=== PATIENT | female | born 1930 | race Caucasian/White ===

== ENCOUNTER 2020-10-04 16:18 | Inpatient (IN) | payer MEDICARE ==
[2020-10-04 17:01] LABS: #Monocytes 0.6 10x3/uL (0.0-1.1); #Neutrophils 10.5 10x3/uL (1.5-8.4); %Basophils 0.2 % (0.0-2.0); %Eosinophils 0.1 % (0.0-6.0); %Lymphocytes 6.4 % (18.0-47.0); %Monocytes 5.3 % (0.0-10.0); %Neutrophils 87.6 % (40.0-75.0); Hemoglobin 11.4 g/dL (12.0-15.5); Mean Corpuscular HGB CONC 32.1 g/dL (32.0-36.0); Mean Corpuscular Hemoglobin 28.6 pg (27.0-33.0); Mean Platelet Volume 10.2 fl (7.4-10.4); Platelet Count 226 10x3/uL (150-450); RBC Distribution Width 12.5 % (11.5-14.5); Red Blood Cell (RBC) Count 3.99 10x6/uL (3.90-5.03); White Blood Cell (WBC) Count 11.9 10x3/uL (3.5-10.5)
[2020-10-04 17:15] LABS: ALT (SGPT) 15 U/L (8-55); AST (SGOT) 22 U/L (5-34); Albumin 4.2 g/dL (3.4-4.8); Alkaline Phosphatase 85 U/L (40-110); Anion Gap 15 mmol/L (10-20); BUN (Urea Nitrogen) 9 mg/dL (9.8-20.1); Bilirubin, Total 0.7 mg/dL (0.2-1.2); Calc. Creatinine Clearance 0 mL/min (70-130); Calcium 9.3 mg/dL (7.8-10.44); Carbon Dioxide 23 mmol/L (23-31); Chloride 103 mmol/L (98-107); Globulin 2.2 g/dL (2.4-3.5); Glucose 138 mg/dL (83-110); Potassium 3.5 mmol/L (3.5-5.1); Protein, Total 6.4 g/dL (5.8-8.1); Sodium 137 mmol/L (136-145)
[2020-10-04] MEDS ORDERED: Aspirin Chewable 81 MG TAB ONE (17:22)
[2020-10-04] MEDS ORDERED: Nitroglycerin 2% Ointment 1 INCH/1 GM Packet ONE (17:22)
[2020-10-04] MEDS ORDERED: Piperacillin/Tazobactam 3.375 GM VIAL ONE (20:12)
[2020-10-04] MEDS ORDERED: ALPRAZolam 0.25 MG TAB PO SCH (23:30)
[2020-10-04 23:32] LABS: SARS-CoV-2 NAA Rapid Test Not Detected (NotDetected)
[2020-10-05] MEDS ORDERED: ALPRAZolam 0.5 MG TAB ONE (00:11)
[2020-10-05] MEDS ORDERED: Pantoprazole 40 MG VIAL IVP SCH (00:45)
[2020-10-05] MEDS ORDERED: Pantoprazole 40 MG VIAL ONE ×2 (00:47→12:25)
[2020-10-05] MEDS: Sodium Chloride 0.9% 1,000 ML IV SCH ×3 (00:54→21:16)
[2020-10-05] MEDS ORDERED: Piperacillin/Tazobactam 3.375 GM in Sodium Chloride 0.9% 100 ML IVPB SCH ×2 (01:00→20:00)
[2020-10-05] MEDS ORDERED: Piperacillin/Tazobactam 3.375 GM VIAL ONE ×2 (01:03→12:24)
[2020-10-05] MEDS ORDERED: Potassium Chloride 20 MEQ/100 ML PREMIX BAG ONE (01:31)
[2020-10-05] MEDS: Piperacillin/Tazobactam 3.375 GM in Sodium Chloride 0.9% 100 ML IVPB SCH ×3 (01:42→20:11)
[2020-10-05] MEDS ORDERED: Potassium Chloride 10 MEQ in Premix Bag 1 BAG IVPB SCH (02:00)
[2020-10-05] MEDS ORDERED: Potassium Bicarbonate/Cit Ac 20 MEQ TAB PO SCH (03:15)
[2020-10-05] MEDS ORDERED: Potassium Chloride 20 MEQ TAB ONE (03:23)
[2020-10-05 03:39] LABS: #Monocytes 0.8 10x3/uL (0.0-1.1); %Basophils 0.2 % (0.0-2.0); %Lymphocytes 6.1 % (18.0-47.0); %Monocytes 6.5 % (0.0-10.0); %Neutrophils 86.7 % (40.0-75.0); Mean Corpuscular HGB CONC 32.6 g/dL (32.0-36.0); Mean Corpuscular Hemoglobin 29.1 pg (27.0-33.0); Mean Corpuscular Volume 89.2 fl (81.6-98.3); Mean Platelet Volume 10.3 fl (7.4-10.4); Platelet Count 226 10x3/uL (150-450); RBC Distribution Width 12.8 % (11.5-14.5); Red Blood Cell (RBC) Count 3.44 10x6/uL (3.90-5.03); White Blood Cell (WBC) Count 12.7 10x3/uL (3.5-10.5)
[2020-10-05 03:44] LABS: Anion Gap 12 mmol/L (10-20); BUN (Urea Nitrogen) 9 mg/dL (9.8-20.1); Calc. Creatinine Clearance 54 mL/min (70-130); Calcium 8.7 mg/dL (7.8-10.44); Carbon Dioxide 23 mmol/L (23-31); Cardiac Risk 2.6 (Less than 4.5); Chloride 105 mmol/L (98-107); Cholesterol 168 mg/dl (< 200 Desired); Glucose 139 mg/dL (83-110); HDL Cholesterol 64 mg/dL (>60 Neg Risk); LDL Cholesterol, Calculated 96 mg/dL; Magnesium 1.8 mg/dL (1.6-2.6); Potassium 3.2 mmol/L (3.5-5.1); Sodium 137 mmol/L (136-145); Triglycerides 38 mg/dL (Less than 150)
[2020-10-05 03:51] LABS: Troponin I 0.021 ng/mL (< 0.028)
[2020-10-05] MEDS ORDERED: Potassium Chloride 20 MEQ TAB PO SCH ×2 (04:00→09:30)
[2020-10-05] MEDS ORDERED: Enoxaparin Sodium 30 MG/0.3 ML SYRINGE ONE (12:23)
[2020-10-05] MEDS ORDERED: Metoprolol Tartrate 25 MG TAB ONE (12:23)
[2020-10-05] MEDS ORDERED: Aspirin Chewable 81 MG TAB ONE (12:23)
[2020-10-05] MEDS ORDERED: Amlodipine 5 MG TAB ONE (12:24)
[2020-10-05] MEDS: Amlodipine 5 MG TAB PO SCH (12:40)
[2020-10-05] MEDS: Enoxaparin Sodium 30 MG/0.3 ML SYRINGE SC SCH (12:41)
[2020-10-05] MEDS: Aspirin 81 mg Enteric Coated Tablet PO SCH (12:41)
[2020-10-05] MEDS: Metoprolol Tartrate 25 MG TAB PO SCH ×2 (12:42→21:02)
[2020-10-05] MEDS: Pantoprazole 40 MG VIAL IVP SCH ×2 (12:42→21:04)
[2020-10-05] MEDS: ALPRAZolam 0.25 MG TAB PO SCH (21:02)
[2020-10-06 05:30] LABS: #Eosinphils 0.1 10x3/uL (0.0-0.5); #Monocytes 0.6 10x3/uL (0.0-1.1); #Neutrophils 7.6 10x3/uL (1.5-8.4); %Basophils 0.2 % (0.0-2.0); %Eosinophils 1.1 % (0.0-6.0); %Lymphocytes 10.3 % (18.0-47.0); %Monocytes 6.4 % (0.0-10.0); %Neutrophils 81.7 % (40.0-75.0); Hemoglobin 9.1 g/dL (12.0-15.5); Mean Corpuscular HGB CONC 31.7 g/dL (32.0-36.0); Mean Corpuscular Hemoglobin 28.5 pg (27.0-33.0); Mean Platelet Volume 10.4 fl (7.4-10.4); Platelet Count 188 10x3/uL (150-450); RBC Distribution Width 12.8 % (11.5-14.5); Red Blood Cell (RBC) Count 3.19 10x6/uL (3.90-5.03); White Blood Cell (WBC) Count 9.3 10x3/uL (3.5-10.5)
[2020-10-06 05:43] LABS: Anion Gap 13 mmol/L (10-20); BUN (Urea Nitrogen) 8 mg/dL (9.8-20.1); Calc. Creatinine Clearance 64 mL/min (70-130); Calcium 8.5 mg/dL (7.8-10.44); Carbon Dioxide 21 mmol/L (23-31); Chloride 108 mmol/L (98-107); Glucose 98 mg/dL (83-110); Potassium 3.7 mmol/L (3.5-5.1); Sodium 138 mmol/L (136-145)
[2020-10-06] MEDS: Enoxaparin Sodium 30 MG/0.3 ML SYRINGE SC SCH (08:52)
[2020-10-06] MEDS: Pantoprazole 40 MG VIAL IVP SCH ×2 (08:52→23:11)
[2020-10-06] MEDS: Amlodipine 5 MG TAB PO SCH (08:53)
[2020-10-06] MEDS: Metoprolol Tartrate 25 MG TAB PO SCH ×2 (08:54→21:24)
[2020-10-06] MEDS: Aspirin 81 mg Enteric Coated Tablet PO SCH (08:54)
[2020-10-06] MEDS ORDERED: Ondansetron PF 4 MG/2 ML Vial IVP PRN (13:20)
[2020-10-06] MEDS: Sodium Chloride 0.9% 1,000 ML IV SCH (13:48)
[2020-10-06] MEDS: Sucralfate 1 GM/10 ML UDCUP PO SCH ×2 (17:05→23:14)
[2020-10-06] MEDS ORDERED: Pantoprazole 40 MG VIAL ONE (21:15)
[2020-10-06] MEDS: ALPRAZolam 0.25 MG TAB PO SCH (21:24)
[2020-10-07] MEDS: Sodium Chloride 0.9% 1,000 ML IV SCH (02:56)
[2020-10-07 06:03] LABS: Anion Gap 12 mmol/L (10-20); BUN (Urea Nitrogen) 5 mg/dL (9.8-20.1); Calc. Creatinine Clearance 63 mL/min (70-130); Calcium 8.9 mg/dL (7.8-10.44); Carbon Dioxide 25 mmol/L (23-31); Chloride 108 mmol/L (98-107); Glucose 112 mg/dL (83-110); Potassium 3.4 mmol/L (3.5-5.1); Sodium 142 mmol/L (136-145)
[2020-10-07 06:31] LABS: #Eosinphils 0.3 10x3/uL (0.0-0.5); #Monocytes 0.6 10x3/uL (0.0-1.1); #Neutrophils 4.6 10x3/uL (1.5-8.4); %Basophils 0.5 % (0.0-2.0); %Eosinophils 4.4 % (0.0-6.0); %Lymphocytes 16.8 % (18.0-47.0); %Monocytes 8.4 % (0.0-10.0); %Neutrophils 69.1 % (40.0-75.0); Hemoglobin 9.8 g/dL (12.0-15.5); Mean Corpuscular HGB CONC 30.9 g/dL (32.0-36.0); Mean Corpuscular Hemoglobin 28.4 pg (27.0-33.0); Mean Corpuscular Volume 91.9 fl (81.6-98.3); Mean Platelet Volume 10.7 fl (7.4-10.4); Platelet Count 209 10x3/uL (150-450); RBC Distribution Width 12.8 % (11.5-14.5); Red Blood Cell (RBC) Count 3.45 10x6/uL (3.90-5.03); White Blood Cell (WBC) Count 6.7 10x3/uL (3.5-10.5)
[2020-10-07] MEDS ORDERED: Enoxaparin Sodium 30 MG/0.3 ML SYRINGE ONE (09:20)
[2020-10-07] MEDS: Sucralfate 1 GM/10 ML UDCUP PO SCH ×5 (09:28→23:40)
[2020-10-07] MEDS: Amlodipine 5 MG TAB PO SCH (09:28)
[2020-10-07] MEDS: Pantoprazole 40 MG VIAL IVP SCH ×2 (09:28→20:17)
[2020-10-07] MEDS: Enoxaparin Sodium 30 MG/0.3 ML SYRINGE SC SCH (09:29)
[2020-10-07] MEDS: Metoprolol Tartrate 25 MG TAB PO SCH ×2 (09:29→20:10)
[2020-10-07] MEDS: Aspirin 81 mg Enteric Coated Tablet PO SCH (09:29)
[2020-10-07] MEDS ORDERED: Potassium Bicarbonate/Cit Ac 20 MEQ TAB PO SCH (14:00)
[2020-10-07] MEDS: ALPRAZolam 0.25 MG TAB PO SCH (20:10)
[2020-10-08 05:37] LABS: #Eosinphils 0.3 10x3/uL (0.0-0.5); #Monocytes 0.6 10x3/uL (0.0-1.1); #Neutrophils 3.6 10x3/uL (1.5-8.4); %Basophils 0.4 % (0.0-2.0); %Eosinophils 5.2 % (0.0-6.0); %Monocytes 9.6 % (0.0-10.0); %Neutrophils 62.9 % (40.0-75.0); Hemoglobin 9.7 g/dL (12.0-15.5); Mean Corpuscular HGB CONC 32.1 g/dL (32.0-36.0); Mean Corpuscular Hemoglobin 28.6 pg (27.0-33.0); Mean Corpuscular Volume 89.1 fl (81.6-98.3); Mean Platelet Volume 10.7 fl (7.4-10.4); Platelet Count 239 10x3/uL (150-450); RBC Distribution Width 12.7 % (11.5-14.5); Red Blood Cell (RBC) Count 3.39 10x6/uL (3.90-5.03); White Blood Cell (WBC) Count 5.7 10x3/uL (3.5-10.5)
[2020-10-08 05:40] LABS: Anion Gap 14 mmol/L (10-20); BUN (Urea Nitrogen) 5 mg/dL (9.8-20.1); Carbon Dioxide 25 mmol/L (23-31); Chloride 106 mmol/L (98-107); Potassium 3.2 mmol/L (3.5-5.1); Sodium 142 mmol/L (136-145)
[2020-10-08 05:41] LABS: Calc. Creatinine Clearance 61 mL/min (70-130); Calcium 9.1 mg/dL (7.8-10.44); Glucose 108 mg/dL (83-110)
[2020-10-08] MEDS: Amlodipine 5 MG TAB PO SCH (08:44)
[2020-10-08] MEDS: Sucralfate 1 GM/10 ML UDCUP PO SCH ×4 (08:44→22:56)
[2020-10-08] MEDS: Enoxaparin Sodium 30 MG/0.3 ML SYRINGE SC SCH (08:45)
[2020-10-08] MEDS: Metoprolol Tartrate 25 MG TAB PO SCH ×2 (08:45→23:10)
[2020-10-08] MEDS: Aspirin 81 mg Enteric Coated Tablet PO SCH (08:45)
[2020-10-08] MEDS: Pantoprazole 40 MG VIAL IVP SCH ×2 (08:46→22:55)
[2020-10-08] MEDS ORDERED: Piperacillin/Tazobactam 3.375 GM in Sodium Chloride 0.9% 100 ML IVPB SCH ×2 (17:00→21:00)
[2020-10-08] MEDS ORDERED: Potassium Chloride 40 MEQ in Premix Bag 1 BAG IVPB SCH (17:00)
[2020-10-08] MEDS ORDERED: Potassium Chloride 20 MEQ in Premix Bag 1 BAG IVPB SCH (18:00)
[2020-10-08] MEDS ORDERED: Potassium Chloride 20 MEQ TAB PO SCH (19:00)
[2020-10-08] MEDS: ALPRAZolam 0.25 MG TAB PO SCH (22:53)
[2020-10-09] MEDS: Piperacillin/Tazobactam 3.375 GM in Sodium Chloride 0.9% 100 ML IVPB SCH ×3 (05:04→20:50)
[2020-10-09] MEDS: Sucralfate 1 GM/10 ML UDCUP PO SCH ×4 (08:18→22:04)
[2020-10-09] MEDS: Pantoprazole 40 MG VIAL IVP SCH ×2 (08:18→20:50)
[2020-10-09] MEDS: Aspirin 81 mg Enteric Coated Tablet PO SCH (08:19)
[2020-10-09] MEDS: Amlodipine 5 MG TAB PO SCH (08:19)
[2020-10-09] MEDS: Enoxaparin Sodium 30 MG/0.3 ML SYRINGE SC SCH (08:19)
[2020-10-09] MEDS: Metoprolol Tartrate 25 MG TAB PO SCH ×2 (08:19→20:49)
[2020-10-09 08:32] LABS: #Eosinphils 0.3 10x3/uL (0.0-0.5); #Monocytes 0.5 10x3/uL (0.0-1.1); #Neutrophils 3.3 10x3/uL (1.5-8.4); %Basophils 0.8 % (0.0-2.0); %Eosinophils 6.3 % (0.0-6.0); %Lymphocytes 18.7 % (18.0-47.0); %Monocytes 10.3 % (0.0-10.0); %Neutrophils 62.6 % (40.0-75.0); Hemoglobin 9.2 g/dL (12.0-15.5); Mean Corpuscular HGB CONC 31.6 g/dL (32.0-36.0); Mean Corpuscular Hemoglobin 28.5 pg (27.0-33.0); Mean Corpuscular Volume 90.1 fl (81.6-98.3); Mean Platelet Volume 11.1 fl (7.4-10.4); Platelet Count 239 10x3/uL (150-450); RBC Distribution Width 12.5 % (11.5-14.5); Red Blood Cell (RBC) Count 3.23 10x6/uL (3.90-5.03); White Blood Cell (WBC) Count 5.3 10x3/uL (3.5-10.5)
[2020-10-09 08:45] LABS: Anion Gap 15 mmol/L (10-20); BUN (Urea Nitrogen) 9 mg/dL (9.8-20.1); CRP (Inflammatory) 3.67 mg/dL (= or < 0.5); Calc. Creatinine Clearance 60 mL/min (70-130); Calcium 8.9 mg/dL (7.8-10.44); Carbon Dioxide 26 mmol/L (23-31); Chloride 104 mmol/L (98-107); Glucose 114 mg/dL (83-110); Magnesium 1.9 mg/dL (1.6-2.6); Potassium 3.1 mmol/L (3.5-5.1); Sodium 142 mmol/L (136-145)
[2020-10-09] MEDS ORDERED: Potassium Chloride 20 MEQ TAB PO SCH (09:15)
[2020-10-09] MEDS: ALPRAZolam 0.25 MG TAB PO SCH (20:49)
[2020-10-10] MEDS: Piperacillin/Tazobactam 3.375 GM in Sodium Chloride 0.9% 100 ML IVPB SCH ×3 (04:43→22:00)
[2020-10-10] MEDS: Amlodipine 5 MG TAB PO SCH (10:03)
[2020-10-10] MEDS: Enoxaparin Sodium 30 MG/0.3 ML SYRINGE SC SCH (10:03)
[2020-10-10] MEDS: Pantoprazole 40 MG VIAL IVP SCH ×2 (10:03→22:00)
[2020-10-10] MEDS: Metoprolol Tartrate 25 MG TAB PO SCH ×2 (10:04→22:00)
[2020-10-10] MEDS: Sucralfate 1 GM/10 ML UDCUP PO SCH ×4 (10:05→22:01)
[2020-10-10 10:11] LABS: Anion Gap 10 mmol/L (10-20); BUN (Urea Nitrogen) 7 mg/dL (9.8-20.1); Calc. Creatinine Clearance 57 mL/min (70-130); Calcium 9.3 mg/dL (7.8-10.44); Carbon Dioxide 29 mmol/L (23-31); Chloride 104 mmol/L (98-107); Glucose 115 mg/dL (83-110); Potassium 3.4 mmol/L (3.5-5.1); Sodium 140 mmol/L (136-145)
[2020-10-10 10:12] LABS: #Eosinphils 0.3 10x3/uL (0.0-0.5); #Monocytes 0.4 10x3/uL (0.0-1.1); #Neutrophils 3.5 10x3/uL (1.5-8.4); %Basophils 0.8 % (0.0-2.0); %Lymphocytes 19.2 % (18.0-47.0); %Monocytes 7.9 % (0.0-10.0); %Neutrophils 66.5 % (40.0-75.0); Hemoglobin 9.4 g/dL (12.0-15.5); Mean Corpuscular HGB CONC 31.4 g/dL (32.0-36.0); Mean Corpuscular Hemoglobin 28.3 pg (27.0-33.0); Mean Corpuscular Volume 90.1 fl (81.6-98.3); Mean Platelet Volume 10.4 fl (7.4-10.4); Platelet Count 268 10x3/uL (150-450); RBC Distribution Width 12.5 % (11.5-14.5); Red Blood Cell (RBC) Count 3.32 10x6/uL (3.90-5.03); White Blood Cell (WBC) Count 5.2 10x3/uL (3.5-10.5)
[2020-10-10] MEDS: Aspirin 81 mg Enteric Coated Tablet PO SCH (11:32)
[2020-10-10] MEDS: ALPRAZolam 0.25 MG TAB PO SCH (22:00)
[2020-10-11] MEDS: Piperacillin/Tazobactam 3.375 GM in Sodium Chloride 0.9% 100 ML IVPB SCH ×2 (04:55→15:29)
[2020-10-11] MEDS ORDERED: Bupivacaine 0.25% HCL 30 ML VIAL ONE ×2 (09:23→10:30)
[2020-10-11] MEDS ORDERED: EPINEPHrine 1 MG/ML AMP ONE ×2 (09:23→10:31)
[2020-10-11] MEDS: Sucralfate 1 GM/10 ML UDCUP PO SCH ×4 (09:29→22:25)
[2020-10-11] MEDS: Metoprolol Tartrate 25 MG TAB PO SCH ×2 (09:34→20:19)
[2020-10-11] MEDS: Amlodipine 5 MG TAB PO SCH (09:34)
[2020-10-11] MEDS: D5 1/2 NS w/20 mEq KCL 1,000 ML IV SCH ×2 (09:36→20:21)
[2020-10-11] MEDS: Pantoprazole 40 MG VIAL IVP SCH ×2 (09:49→22:35)
[2020-10-11] MEDS ORDERED: Lidocaine 1% MPF 2 ML VIAL ONE (09:54)
[2020-10-11] MEDS ORDERED: PROPOFOL 20 ML ONE (10:56)
[2020-10-11] MEDS ORDERED: Rocuronium Bromide 10 MG/ML (10ML VIAL) ONE (10:56)
[2020-10-11] MEDS ORDERED: Midazolam HCl 2 mg/2 ml Vial ONE (10:56)
[2020-10-11] MEDS ORDERED: Glycopyrrolate 0.2 MG/ML 5 ML SYRINGE ONE (10:56)
[2020-10-11] MEDS ORDERED: Ondansetron PF 4 MG/2 ML Vial ONE (10:56)
[2020-10-11] MEDS ORDERED: Dexamethasone 4 mg/ml Vial ONE (10:56)
[2020-10-11] MEDS ORDERED: Fentanyl 100 MCG/2 ML VIAL ONE (10:56)
[2020-10-11] MEDS ORDERED: Lidocaine 1% PF 5 ML VIAL ONE (10:56)
[2020-10-11] MEDS ORDERED: ePHEDrine Sulfate 50 MG/10 ML VIAL ONE (11:28)
[2020-10-11] MEDS ORDERED: SUGAMMADEX SODIUM 500 MG/5 ML VIAL ONE (13:26)
[2020-10-11] MEDS: HYDROcodone/Acetaminophen 5/325 mg Tablet PO PRN ×2 (15:25→20:19)
[2020-10-11] MEDS: ALPRAZolam 0.25 MG TAB PO SCH (20:19)
[2020-10-12] MEDS: Piperacillin/Tazobactam 3.375 GM in Sodium Chloride 0.9% 100 ML IVPB SCH ×4 (01:56→22:59)
[2020-10-12] MEDS: Polyethylene Glycol 3350 17 GM Packet PO SCH (08:40)
[2020-10-12 09:36] LABS: #Monocytes 0.7 10x3/uL (0.0-1.1); #Neutrophils 6.4 10x3/uL (1.5-8.4); %Basophils 0.2 % (0.0-2.0); %Eosinophils 0.2 % (0.0-6.0); %Monocytes 8.8 % (0.0-10.0); %Neutrophils 76.2 % (40.0-75.0); Hemoglobin 9.2 g/dL (12.0-15.5); Mean Corpuscular HGB CONC 30.5 g/dL (32.0-36.0); Mean Corpuscular Hemoglobin 28.1 pg (27.0-33.0); Mean Corpuscular Volume 92.4 fl (81.6-98.3); Mean Platelet Volume 10.6 fl (7.4-10.4); Platelet Count 309 10x3/uL (150-450); RBC Distribution Width 12.4 % (11.5-14.5); Red Blood Cell (RBC) Count 3.27 10x6/uL (3.90-5.03); White Blood Cell (WBC) Count 8.4 10x3/uL (3.5-10.5)
[2020-10-12 10:04] LABS: Anion Gap 12 mmol/L (10-20); BUN (Urea Nitrogen) 10 mg/dL (9.8-20.1); Calc. Creatinine Clearance 52 mL/min (70-130); Calcium 8.7 mg/dL (7.8-10.44); Carbon Dioxide 27 mmol/L (23-31); Chloride 102 mmol/L (98-107); Glucose 126 mg/dL (83-110); Sodium 137 mmol/L (136-145)
[2020-10-12] MEDS: Morphine 2 MG/ML VIAL SLOW IVP PRN ×2 (19:22→22:54)
[2020-10-13] MEDS: Piperacillin/Tazobactam 3.375 GM in Sodium Chloride 0.9% 100 ML IVPB SCH ×4 (04:27→22:00)
[2020-10-13] MEDS: Metoprolol Tartrate 25 MG TAB PO SCH ×2 (10:03→21:47)
[2020-10-13] MEDS: Aspirin 81 mg Enteric Coated Tablet PO SCH (10:03)
[2020-10-13] MEDS: Enoxaparin Sodium 40 MG/0.4 ML SYRINGE SC SCH (10:04)
[2020-10-13] MEDS: Polyethylene Glycol 3350 17 GM Packet PO SCH (10:04)
[2020-10-13] MEDS: Morphine 2 MG/ML VIAL SLOW IVP PRN ×3 (10:04→21:37)
[2020-10-13] MEDS ORDERED: Ondansetron PF 4 MG/2 ML Vial IVP PRN (13:49)
[2020-10-13] MEDS: Ondansetron ODT 4 MG TAB PO PRN ×2 (14:12→21:45)
[2020-10-13] MEDS: ALPRAZolam 0.25 MG TAB PO SCH (21:47)
[2020-10-14] MEDS: Piperacillin/Tazobactam 3.375 GM in Sodium Chloride 0.9% 100 ML IVPB SCH ×2 (05:20→15:07)
[2020-10-14 06:06] LABS: #Eosinphils 0.3 10x3/uL (0.0-0.5); #Monocytes 0.5 10x3/uL (0.0-1.1); #Neutrophils 2.9 10x3/uL (1.5-8.4); %Basophils 0.4 % (0.0-2.0); %Eosinophils 6.4 % (0.0-6.0); %Lymphocytes 22.4 % (18.0-47.0); %Monocytes 10.4 % (0.0-10.0); %Neutrophils 59.8 % (40.0-75.0); Hemoglobin 9.1 g/dL (12.0-15.5); Mean Corpuscular HGB CONC 30.1 g/dL (32.0-36.0); Mean Corpuscular Hemoglobin 28.3 pg (27.0-33.0); Mean Corpuscular Volume 94.1 fl (81.6-98.3); Mean Platelet Volume 10.2 fl (7.4-10.4); Platelet Count 301 10x3/uL (150-450); RBC Distribution Width 12.5 % (11.5-14.5); Red Blood Cell (RBC) Count 3.21 10x6/uL (3.90-5.03); White Blood Cell (WBC) Count 4.8 10x3/uL (3.5-10.5)
[2020-10-14 06:12] LABS: Anion Gap 11 mmol/L (10-20); BUN (Urea Nitrogen) 5 mg/dL (9.8-20.1); Calc. Creatinine Clearance 59 mL/min (70-130); Carbon Dioxide 29 mmol/L (23-31); Chloride 104 mmol/L (98-107); Glucose 93 mg/dL (83-110); Potassium 3.8 mmol/L (3.5-5.1); Sodium 140 mmol/L (136-145)
[2020-10-14] MEDS: Polyethylene Glycol 3350 17 GM Packet PO SCH (09:17)
[2020-10-14] MEDS: Metoprolol Tartrate 25 MG TAB PO SCH ×2 (09:17→20:53)
[2020-10-14] MEDS: Enoxaparin Sodium 40 MG/0.4 ML SYRINGE SC SCH (09:17)
[2020-10-14] MEDS: Aspirin 81 mg Enteric Coated Tablet PO SCH (09:17)
[2020-10-14] MEDS: Ondansetron ODT 4 MG TAB PO PRN (10:54)
[2020-10-14] MEDS: Morphine 2 MG/ML VIAL SLOW IVP PRN (10:54)
[2020-10-14] MEDS: ALPRAZolam 0.25 MG TAB PO SCH (20:53)
[2020-10-15] MEDS: Metoprolol Tartrate 25 MG TAB PO SCH ×2 (08:49→21:36)
[2020-10-15] MEDS: Enoxaparin Sodium 40 MG/0.4 ML SYRINGE SC SCH (08:49)
[2020-10-15] MEDS: Aspirin 81 mg Enteric Coated Tablet PO SCH (08:49)
[2020-10-15] MEDS: Polyethylene Glycol 3350 17 GM Packet PO SCH (08:50)
[2020-10-15] MEDS: ALPRAZolam 0.25 MG TAB PO SCH (21:36)
[2020-10-16] MEDS: Aspirin 81 mg Enteric Coated Tablet PO SCH (08:28)
[2020-10-16] MEDS: Metoprolol Tartrate 25 MG TAB PO SCH ×2 (08:28→20:00)
[2020-10-16] MEDS: Enoxaparin Sodium 40 MG/0.4 ML SYRINGE SC SCH (08:28)
[2020-10-16] MEDS: Polyethylene Glycol 3350 17 GM Packet PO SCH (08:29)
[2020-10-16] MEDS ORDERED: Amlodipine 5 MG TAB PO SCH (14:00)
[2020-10-16] MEDS: ALPRAZolam 0.25 MG TAB PO SCH (22:58)
[2020-10-17 06:31] LABS: #Basophils 0.1 10x3/uL (0.0-0.2); #Eosinphils 0.3 10x3/uL (0.0-0.5); #Monocytes 0.4 10x3/uL (0.0-1.1); #Neutrophils 3.6 10x3/uL (1.5-8.4); %Basophils 0.8 % (0.0-2.0); %Eosinophils 4.6 % (0.0-6.0); %Monocytes 7.4 % (0.0-10.0); %Neutrophils 60.8 % (40.0-75.0); Hemoglobin 9.8 g/dL (12.0-15.5); Mean Corpuscular HGB CONC 31.2 g/dL (32.0-36.0); Mean Corpuscular Hemoglobin 28.2 pg (27.0-33.0); Mean Corpuscular Volume 90.5 fl (81.6-98.3); Mean Platelet Volume 10.4 fl (7.4-10.4); Platelet Count 326 10x3/uL (150-450); RBC Distribution Width 12.9 % (11.5-14.5); Red Blood Cell (RBC) Count 3.47 10x6/uL (3.90-5.03); White Blood Cell (WBC) Count 5.9 10x3/uL (3.5-10.5)
[2020-10-17 06:46] LABS: Anion Gap 14 mmol/L (10-20); BUN (Urea Nitrogen) 7 mg/dL (9.8-20.1); Calc. Creatinine Clearance 63 mL/min (70-130); Calcium 9.4 mg/dL (7.8-10.44); Carbon Dioxide 24 mmol/L (23-31); Chloride 108 mmol/L (98-107); Glucose 114 mg/dL (83-110); Potassium 3.9 mmol/L (3.5-5.1); Sodium 142 mmol/L (136-145)
[2020-10-17] MEDS: Amlodipine 5 MG TAB PO SCH (08:51)
[2020-10-17] MEDS: Enoxaparin Sodium 40 MG/0.4 ML SYRINGE SC SCH ×2 (08:51→09:01)
[2020-10-17] MEDS: Metoprolol Tartrate 25 MG TAB PO SCH ×2 (08:52→21:19)
[2020-10-17] MEDS: Aspirin 81 mg Enteric Coated Tablet PO SCH (08:52)
[2020-10-17] MEDS: Polyethylene Glycol 3350 17 GM Packet PO SCH (09:02)
[2020-10-17 14:30] VITALS: BMI 16.9
[2020-10-17] MEDS: ALPRAZolam 0.25 MG TAB PO SCH (21:19)
[2020-10-18] MEDS: Amlodipine 5 MG TAB PO SCH (08:15)
[2020-10-18] MEDS: Aspirin 81 mg Enteric Coated Tablet PO SCH (08:15)
[2020-10-18] MEDS: Enoxaparin Sodium 40 MG/0.4 ML SYRINGE SC SCH (08:15)
[2020-10-18] MEDS: Metoprolol Tartrate 25 MG TAB PO SCH (08:15)
[2020-10-18] MEDS: Polyethylene Glycol 3350 17 GM Packet PO SCH (08:37)
[2020-10-18 13:09] VITALS: BP 146/71; TEMP 97.1
== END 2020-10-18 14:42 | DRG 331 ==
LOC: CSHERS 16:18 → INTOOBSV 21:11 → CSHERHOLD 21:11 → CSHTELE 10-05 16:51 → OBSVTOIN 10-06 13:17 → UNDODISIN 10-10 22:49
PROVIDERS: ADMIT Student in an Organized Health Care Education/Training Program; ATTEND Internal Medicine
PROC: 0DT Gastrointestinal System, Resection (ICD-10-PCS; principal; 2020-10-11)
DX: Q43.0 Meckel's diverticulum (displaced) (hypertrophic) (principal); K44.9 Diaphragmatic hernia without obstruction or gangrene; I12.9 Hypertensive chronic kidney disease with stage 1 through stage 4 chronic kidney disease, or unspecified chronic kidney disease; I72.3 Aneurysm of iliac artery; N18.31 Chronic kidney disease, stage 3a; F41.9 Anxiety disorder, unspecified; Z20.822 Contact with and (suspected) exposure to COVID-19; I73.9 Peripheral vascular disease, unspecified; E87.6 Hypokalemia; K21.9 Gastro-esophageal reflux disease without esophagitis; Z85.3 Personal history of malignant neoplasm of breast; D72.829 Elevated white blood cell count, unspecified; R33.9 Retention of urine, unspecified; E78.5 Hyperlipidemia, unspecified; Z79.82 Long term (current) use of aspirin; Z79.899 Other long term (current) drug therapy; Z98.51 Tubal ligation status; Z90.89 Acquired absence of other organs
CPT/HCPCS: 0240U; 36415; 71045; 74177; 80048; 80053; 80061; 83605; 83690; 83735; 84484; 85025; 86140; 87040; 88307; 93005; 93010; 93306; 94760; 96365; 96372; 96375; 96376; C9113; G0378; J0171; J1100; J1650; J2250; J2270; J2405; J2543; J2704; J3010; J3480; J3490; J7050; Q0162; S0020